=== PATIENT | male | born 1990 | race Caucasian/White ===

== ENCOUNTER 2020-11-17 05:15 | Emergency (ER) | payer BC, OTHER ==
[~2020-11-17] VITALS: Ht 172.7 cm; Wt 102.3 kg
[2020-11-17 05:52] LABS: BASO % 0.1 % (0.0-2.0); EOS # 0.1 (0.0-0.7); EOS % 1.2 % (0-4.0); GRAN # 6.4 (1.4-6.5); GRAN % 76.8 % (42.2-75.2); HEMATOCRIT 45.8 % (42.0-52.0); HEMOGLOBIN 15.6 g/dl (13.5-18.0); LYMPH # 0.8 (1.2-3.4); MEAN CELL VOLUME 83 fl (80.0-100.0); MEAN CORPUSCULAR HEMOGLOBIN 28 pg (27.0-31.0); MEAN CORPUSCULAR HGB CONC 34 g/dl (33.0-37.0); MONO % 11.5 % (1.7-9.3); PLATELET COUNT 233 K/mm3 (130-400); RED BLOOD COUNT 5.49 M/mm3 (4.20-5.60); REDCELL DISTRIBUTION WIDTH-CV 12.6 % (11.5-14.5)
[2020-11-17 06:04] LABS: ALANINE AMINOTRANSFERASE 26 U/L (4-49); ALBUMIN 3.9 gm/dL (3.5-5.0); ALKALINE PHOSPHATASE 45 U/L (50-136); ANION GAP 5 mmol/L (7-16); AST,SGOT 25 U/L (15-37); BILIRUBIN,TOTAL 0.6 mg/dL (0.0-1.0); BLOOD UREA NITROGEN 10 mg/dL (9-20); CARBON DIOXIDE 24 mmol/L (22-30); CHLORIDE 107 mmol/L (98-107); GLUCOSE 114 mg/dL (74-106); POTASSIUM 3.6 mmol/L (3.4-5.0); SODIUM 136 mmol/L (137-145); TOTAL PROTEIN 7.3 gm/dL (6.4-8.2)
[2020-11-17 06:16] LABS: TROPONIN-I < 0.012 ng/mL (0.000-0.035)
[2020-11-17] MEDS ORDERED: DOXYCYCLINE 10100 MG PO (06:26)
[2020-11-17] MEDS ORDERED: PREDNISONE20 MG PO (06:26)
[2020-11-17] MEDS ORDERED: ZOFRAN ODT4 MG PO (06:26)
[2020-11-17] MEDS ORDERED: PROAIR HFA0.09 MG/AC IH (06:26)
[2020-11-17] MEDS ORDERED: MUCINEX 60600 MG/TA1 PO (06:48)
[2020-11-17 07:17] VITALS: BP 116/79; PULSE 99; TEMP 99.1
== END 2020-11-17 07:25 | disposition home or self-care (01) ==
LOC: COL.ER
PROVIDERS: Emergency Medicine
DX: J18.9 Pneumonia, unspecified organism (principal); R79.1 Abnormal coagulation profile; Z20.822 Contact with and (suspected) exposure to COVID-19
CPT/HCPCS: J0456; J0696; J1100; J7030; J7050